=== PATIENT | male | born 1945 | race Caucasian/White ===

== ENCOUNTER 2016-09-03 09:25 | Outpatient (CLI) | payer MEDICARE, BC ==
[2016-09-03 17:00] LABS: PSA-Asymptomatic (SCREENING) 4.79 ng/mL (0-4.0); Thyroid Stimulating Hormone 7.5106 uIU/mL (0.35-4.94)
[2016-09-03 17:27] LABS: ALT (SGPT) 10 U/L (8-55); AST (SGOT) 20 U/L (5-34); Albumin 3.5 g/dL (3.4-4.8); Alkaline Phosphatase 66 U/L (40-150); Anion Gap 15 mmol/L (10-20); BUN (Urea Nitrogen) 9 mg/dL (8.4-25.7); Bilirubin, Total 0.2 mg/dL (0.2-1.2); Calc. Creatinine Clearance 0 mL/min (70-130); Calcium 8.5 mg/dL (7.8-10.44); Carbon Dioxide 25 mmol/L (23-31); Cardiac Risk 2.9 (Less than 4.5); Chloride 95 mmol/L (98-107); Cholesterol 131 mg/dL (< 200 Desired); Estimated GFR-MDRD 81; Globulin 2.8 g/dL (2.4-3.5); Glucose 101 mg/dL (80-115); HDL Cholesterol 45 mg/dL (>60 Neg Risk); LDL Cholesterol, Calculated 74 mg/dL; Potassium 5.6 mmol/L (3.5-5.1); Protein, Total 6.3 g/dL (5.8-8.1); Sodium 129 mmol/L (136-145); Triglycerides 58 mg/dL (Less than 150)
[2016-09-03 17:45] LABS: Eosinophils 3 % (0-10); Hemoglobin 12.2 g/dL (14.0-18.0); Lymphocytes 9 % (21-51); MDiff Complete? YES; Mean Corpuscular Hemoglobin 32.6 pg (27.0-31.0); Mean Corpuscular Volume 98.8 fl (80.0-94.0); Mean Platelet Volume 5.1 fL (7.4-10.4); Monocytes 12 % (0-10); Neutrophil 76 % (42-75); Platelet Count 367 thou/uL (130-400); RBC Distribution Width 14.9 % (11.5-14.5); Red Blood Cell (RBC) Count 3.75 mill/uL (4.70-6.10); White Blood Cell (WBC) Count 6.9 thou/uL (4.8-10.8)
== END 2016-09-03 09:26 | disposition home or self-care (01) ==
LOC: LABLEX 09:25
PROVIDERS: ATTEND Family Medicine
DX: Z12.5 Encounter for screening for malignant neoplasm of prostate (principal); E03.9 Hypothyroidism, unspecified; K59.00 Constipation, unspecified; I48.91 Unspecified atrial fibrillation; K92.1 Melena; R06.09 Other forms of dyspnea; R63.4 Abnormal weight loss
CPT/HCPCS: 80053; 80061; 84443; 85025; G0103

== ENCOUNTER 2016-10-22 12:03 | Outpatient (CLI) | payer MEDICARE, BC ==
[2016-10-22 16:23] LABS: #Basophils 0.2 thou/uL (0.0-0.2); #Eosinphils 0.5 thou/uL (0.0-0.7); #Lymphocytes 1.3 thou/uL (1.20-3.40); #Monocytes 0.6 thou/uL (0.11-0.59); #Neutrophils 3.7 thou/uL (1.40-6.50); %Basophils 2.4 % (0.0-1.0); %Eosinophils 7.5 % (0.0-10.0); %Lymphocytes 20.5 % (21.0-51.0); %Monocytes 10.1 % (0.0-10.0); %Neutrophils 59.6 % (42.0-75.0); Hemoglobin 13.7 g/dL (14.0-18.0); Mean Corpuscular HGB CONC 33.7 g/dL (32.0-36.0); Mean Corpuscular Hemoglobin 32.4 pg (27.0-31.0); Mean Corpuscular Volume 95.9 fl (80.0-94.0); Mean Platelet Volume 5.8 fL (7.4-10.4); Platelet Count 413 thou/uL (130-400); RBC Distribution Width 12.6 % (11.5-14.5); Red Blood Cell (RBC) Count 4.25 mill/uL (4.70-6.10); White Blood Cell (WBC) Count 6.3 thou/uL (4.8-10.8)
[2016-10-22 16:39] LABS: Anion Gap 15 mmol/L (10-20); BUN (Urea Nitrogen) 5 mg/dL (8.4-25.7); Calc. Creatinine Clearance 0 mL/min (70-130); Calcium 9.1 mg/dL (7.8-10.44); Carbon Dioxide 25 mmol/L (23-31); Chloride 96 mmol/L (98-107); Estimated GFR-MDRD Greater than 90; Glucose 85 mg/dL (80-115); Sodium 131 mmol/L (136-145)
== END 2016-10-22 12:04 | disposition home or self-care (01) ==
LOC: LABLEX 12:03
PROVIDERS: ATTEND Family Medicine
DX: E03.9 Hypothyroidism, unspecified (principal); D64.9 Anemia, unspecified; E87.1 Hypo-osmolality and hyponatremia
CPT/HCPCS: 80048; 84443; 85025